=== PATIENT | male | born 1985 | race Caucasian/White ===

== ENCOUNTER 2024-06-07 14:41 | Emergency (ER) | payer OTHER, SELFPAY ==
--- NOTE | ~2024-06-07 | XR_ITS ---
CLINICAL HISTORY: sob 2 view chest x-ray Comparison: None Findings: The lungs are clear. Heart size is normal. No acute fracture. IMPRESSION: 1. No acute findings. This document has been electronically signed by: Ross Quiles MD on 06/07/2024 15:23:46
--- NOTE | 2024-06-07 14:50 | ED_ITS ---
HPI - SOB/Dyspnea General Chief Complaint: Dyspnea Stated Complaint: sob Time Seen by Provider: 06/07/24 15:30 Source: patient and RN notes reviewed Mode of arrival: ambulatory Limitations: no limitations History of Present Illness ED Provider: Deborah Modi PA-C HPI Narrative: This is a 38-year-old male to female transgender patient currently on spironolactone and estrogen, who presents emergency department or concerns for increased shortness of breath over the last 4 days. Patient reports that on May 30 2024, she was snowboarding and she had a spontaneous pneumothorax. She was treated at [facility] in the [facility] where they identified the pneumothorax and placed a catheter, she was then transferred to [facility] where she was admitted for 4 days. They removed the catheter, and she has been doing well up into the last 4 days. She does report some left-sided chest pain with inspiration, particularly around the catheter wound site. She states that over the last 4 days she has had some shortness for breath. She does report that she has had increased anxiety in regards to current congressional issues within the transgender community. She is unsure of the shortness of breath is attributed to anxiety and panic disorder versus recent spontaneous pneumothorax. No fevers, chills, cough, congestion, abdominal pain, nausea, vomiting or diarrhea. She has a good support system at home. No other complaints or concerns at this time. MD elicited complaint: shortness of breath Associated symptoms: chest pain and pain with inspiration Related Data Home oxygen amount: none Allergies Allergy/AdvReac Type Severity Reaction Status Date / Time No Known Allergies Allergy Verified 06/07/24 14:55 Review of Systems 2 Review of Systems: Yes all other systems are reviewed and are negative Constitutional: Constitutional: Reports as per [facility] Social History Social History Advance Directives: No Advance Directives Information Provided: No Physical Exam 2 Vital Signs: Vital Signs: Last Vital Signs Temp 97.6 F 06/07/24 17:29 Pulse 72 06/07/24 17:29 Resp 18 06/07/24 17:29 BP 115/53 L 06/07/24 17:29 Pulse Ox 97 06/07/24 17:29 O2 Del Method Room Air 06/07/24 17:29 BMI result Body Mass Index 21.1 Const: General: cooperative, comfortable and no acute distress O rientation/consciousness: patient oriented x3 Limitations: no limitations HEENT: Head: Yes normal to inspection, Yes normocephalic and Yes atraumatic Ears: hearing grossly normal bilaterally General nose exam: Normal external nose present Face and sinus: Yes normal facial exam Mouth: Normal oral and palatal mucosa present, oropharynx normal and moist mucous membranes Throat: Yes posterior oropharynx normal Eyes: General: appearance normal, both eyes and all related structures E yelids: Yes eyelids normal Conjunctivae: conjunctivae normal Sclerae: s clerae normal Pupils: Equal, round and reactive pupils present EOM: EOMs intact bilaterally Neck: Neck: Yes normal visual inspection, Yes full ROM and Yes no lymphadenopathy Lymphatic: no lymphadenopathy noted Chest: Other: Left lateral chest wall, with small healing eschar noted, no palpable deformities, no flail chest. No bony step-off or deformity. No surrounding ecchymosis, erythema or warmth. Chest palpation & inspection: normal inspection of the chest Resp: Effort & Inspection: normal respiratory effort and able to speak in complete sentences Auscultation: clear to auscultation bilaterally, no crackles, no rales, no rhonchi and no wheezes Cardio: Rate: regular rate Rhythm: regular rhythm Heart sounds: S1 normal heart sound present and S2 normal heart sound present GI: Inspection: Yes normal to inspection Skin: General skin exam: no rashes or lesions noted Trauma: no lacerations or abrasions Wounds: no wounds Neuro: General: patient oriented x3 and moves all extremities Cranial nerves: Yes Equal, round and reactive pupils present Extrem: General: Yes normal to inspection Right upper extremity: normal to inspection Left upper extremity: normal to inspection Right lower extremity: normal to inspection Left lower extremity: normal to inspection Course Course Course Narrative: 38 yo patient with PMH MTF on hormone replacement therapy also spontaneous pneumothorax s/p PTX on L side for 48 hours treated at [facility] just last week she has had L sided chest wall ttp and sensitivity and notes she has been anxious but also worried about return PTX. At this time will obtain CXR to evaluate for PTX. this is a RAPID medical screening exam the rest of the history and physical exam is to be done by the main provider. Reevaluation(s) Reevaluation #1: D-dimer negative, patient stable for discharge home. Updated on results, aware of return precautions. Time: 17:11 Medical Decision Making Medical Decision Making [facility] Narrative: This is a 38-year-old male to female transgender patient who presents emergency department with concerns for shortness for breath. Patient has had significant medical history over the last week, had a spontaneous pneumothorax after snowboarding - no injury or falls to suggest traumatic pneumothorax. She was hospitalized for 4 days. On arrival, vital signs within normal limits. She is speaking in full sentences under no acute distress. Lungs are clear to auscultation bilaterally. She does admit to having increasing anxiety in regards to medical stands on transgender reform. Chest x-ray was obtained, revealing no abnormalities. Given that she had recent spontaneous pneumothorax, and hospitalization, and she was on estrogen, she does have risk factors for a pulmonary embolism although this is less likely. She does admit to being under more stress lately. I discussed this case with my attending physician, Dr. Lerner, who agrees that baseline labs, and a D-dimer is appropriate. Again she is not hypoxic, or tachycardic however given risk factors, can not rule out PE. Patient was agreeable for blood work at this time. Labs ordered. Sign-out was given to my colleague, Shila Angel, [place] pending labs and re-evaluation. Differential Diagnosis Differential Diagnoses: The differential diagnosis associated with the presentation includes Pneumothorax, pneumonia, PE, anxiety Lab Data [facility] Lab Attestation statement: I reviewed the patient's lab results. 06/07/24 16:28 06/07/24 16:28 Labs: Lab Results 06/07/24 Range/Units 16:28 WBC 10.9 H (4.8-10.8) X10*3/uL RBC 4.11 L (4.60-5.80) X10*6/uL Hgb 12.7 L (14.0-18.0) g/dl Hct 36.1 L (42.0-52.0) % MCV 87.8 (80.0-98.0) fL MCH 30.9 (27.0-33.0) pg MCHC 35.2 (31.0-36.0) g/dl RDW 12.5 (11.0-16.0) % Plt Count 226 (160-400) X10*3/uL MPV 9.7 (9.4-12.4) fL Immature Gran % (Auto) 0.3 (0.0-0.4) % Neut % (Auto) 66.4 (45-73) % Lymph % (Auto) 25.5 (20-40) % Cecil % (Auto) 5.9 (2-11) % Eos % (Auto) 1.2 (0-4) % Baso % (Auto) 0.7 (0-2) % Lymph # (Auto) 2.8 (1.2-4.9) X10*3/uL Cecil # (Auto) 0.6 (0.1-1.2) X10*3/uL Eos # (Auto) 0.1 (0.0-0.4) X10*3/uL Baso # (Auto) 0.1 (0.0-0.2) X10*3/uL Abs Immat Gran (auto) 0.03 (0.00-0.03) X10*3/uL Absolute Neuts (auto) 7.2 (2.0-8.3) x10*3/uL Absolute Nucleated RBC 0.000 (0.0-0.012) X10*3/uL Nucleated RBC % (auto) 0.0 (0.0-0.2) /100WBC D-Dimer High Sensitivty < 150 NG/ML Sodium 138 (135-145) mmol/L Potassium 4.5 (3.3-5.1) mmol/L Chloride 108 (96-108) mmol/L Carbon Dioxide 24 (22-29) mmol/L Anion Gap 11 L (12-20) BUN 23 H (9-16) mg/dL Creatinine 0.68 (0.5-1.4) mg/dL Estim Creat Clear Calc 148.2 Estimated GFR > 60 Random Glucose 92 (60-115) mg/dL Calcium 8.7 (8.4-10.2) mg/dL Total Bilirubin 0.2 (0.0-1.0) mg/dL AST 20 (5-37) U/L ALT 29 (0-40) U/L Alkaline Phosphatase 38 L (39-117) U/L Total Protein 7.2 (6.5-8.0) g/dL Albumin 4.0 (3.5-5.0) g/dL Radiology Impression Discussion of test interpretation with radiology: I have reviewed the radiologist's reading. Radiologist Impression: CLINICAL HISTORY: sob 2 view chest x-ray Comparison: None Findings: The lungs are clear. Heart size is normal. No acute fracture. IMPRESSION: 1. No acute findings. This document has been electronically signed by: Ross Quiles MD on 06/07/2024 15:23:46 Dictated By: Ross Quiles MD Discharge Plan Discharge Clinical Impression: Acute dyspnea Patient Disposition: Home, Self-Care Instructions: Dyspnea (ED) Additional Instructions: You were seen in the emergency department due to shortness of breath. Chest x-ray was normal. D-dimer was negative. Please follow-up with your primary care physician regarding this visit. If any new or worsening symptoms occur including but not limited to worsening shortness for breath, chest pain, please seek emergent care. Stand Alone Forms: Work/School Release Interventions: ED Discharge Assessment Last Done: 06/07/24 17:29 Discharge Date/Time: 06/07/24 17:29 Print Language: Bulgarian
[2024-06-07 14:51] VITALS: BP 115/53; PULSE 72; RESP 18; TEMP 36.4; O2SAT 97; BMI 21.1
[2024-06-07 16:32] LABS: MANUAL DIFF FLAG NO
[2024-06-07 16:45] LABS: Basophils Absolute Auto 0.1 X10*3/uL (0.0-0.2); Basophils Percent Auto 0.7 % (0-2); Eosinophils Absolute Auto 0.1 X10*3/uL (0.0-0.4); Eosinophils Percent Auto 1.2 % (0-4); Hematocrit 36.1 % (42.0-52.0); Hemoglobin 12.7 g/dl (14.0-18.0); Imm Gran Abs Auto 0.03 X10*3/uL (0.00-0.03); Imm Gran Pct Auto 0.3 % (0.0-0.4); Lymphocytes Absolute Auto 2.8 X10*3/uL (1.2-4.9); Lymphocytes Percent Auto 25.5 % (20-40); Mean Corpuscular HGB Conc 35.2 g/dl (31.0-36.0); Mean Corpuscular Hemoglobin 30.9 pg (27.0-33.0); Mean Corpuscular Volume 87.8 fL (80.0-98.0); Mean Platelet Volume 9.7 fL (9.4-12.4); Monocytes Absolute Auto 0.6 X10*3/uL (0.1-1.2); Monocytes Percent Auto 5.9 % (2-11); Neutrophils Absolute Auto 7.2 x10*3/uL (2.0-8.3); Neutrophils Percent Auto 66.4 % (45-73); Platelet Count 226 X10*3/uL (160-400); Red Blood Count 4.11 X10*6/uL (4.60-5.80); Red Cell Distribution Width 12.5 % (11.0-16.0); White Blood Count 10.9 X10*3/uL (4.8-10.8)
[2024-06-07 16:53] LABS: Alanine Aminotransferase 29 U/L (0-40); Alkaline Phosphatase 38 U/L (39-117); Anion Gap 11 (12-20); Aspartate Amino Transferase 20 U/L (5-37); Bilirubin Total 0.2 mg/dL (0.0-1.0); Blood Urea Nitrogen 23 mg/dL (9-16); Calcium 8.7 mg/dL (8.4-10.2); Carbon Dioxide 24 mmol/L (22-29); Chloride 108 mmol/L (96-108); Creatinine Clr Calc Pharmacy 148.2; Estimated Glomerular Filt Rate > 60; Glucose Random 92 mg/dL (60-115); Potassium 4.5 mmol/L (3.3-5.1); Sodium 138 mmol/L (135-145); Total Protein 7.2 g/dL (6.5-8.0)
[2024-06-07 16:56] LABS: D Dimer High Sensitivity < 150 NG/ML
[2024-06-07 17:29] VITALS: BP 115/53; PULSE 72; RESP 18; TEMP 36.4; O2SAT 97
== END 2024-06-07 17:29 | disposition home or self-care (01) ==
PROVIDERS: Physician Assistant Medical; Emergency Provider Emergency Medicine
DX: R06.00 Dyspnea, unspecified (principal); R06.02 Shortness of breath; F64.0 Transsexualism; Z79.890 Hormone replacement therapy
CPT/HCPCS: 36415; 71046; 80053; 85025; 85379; 99282; 99283

== ENCOUNTER → 2024-06-07 14:43 | Outpatient (BNV) | payer SELFPAY | PROVIDERS: Emergency Provider Emergency Medicine; Visit Provider Radiology Diagnostic Radiology | DX: R06.02 Shortness of breath (principal) | CPT/HCPCS: 71046 ==